=== PATIENT | female | born 1990 | race Caucasian/White ===

== ENCOUNTER → 2018-01-22 | Outpatient (CLI) | payer OTHER ==
[~2018-01-22] MED LIST: BIRTH CONTROL
== END | disposition home or self-care (01) ==
LOC: RAD 14:11
PROC: BU18YZZ Fluoroscopy of Uterus and Fallopian Tubes using Other Contrast (ICD-10-PCS; principal; 2018-01-22)
PROC: 0UJ87ZZ Inspection of Fallopian Tube, Via Natural or Artificial Opening (ICD-10-PCS; principal; 2018-01-22)
DX: Z31.41 Encounter for fertility testing (principal); N97.1 Female infertility of tubal origin
CPT/HCPCS: 74740